=== PATIENT | female | born 2000 | race Caucasian/White ===

== ENCOUNTER 2024-01-28 19:26 | Emergency (ER) | payer MEDICAID, SELFPAY ==
[2024-01-28 19:32] VITALS: BP 129/89; PULSE 86; RESP 14; TEMP 36.8; O2SAT 100; BMI 30.4
--- NOTE | 2024-01-28 19:56 | ED_ITS ---
HPI - Abdominal Pain 2 General: Chief Complaint: Abdominal Pain Stated Complaint: pain on right side Time Seen by Provider: 01/28/24 19:50 History of Present Illness: 23-year-old female presents emergency ro om complaining of right-sided flank pain radiating from her right flank down into her lower pelvis intermittently. She denies any dysuria urgency or frequency she has not had any associated hematuria no history of fever sweats or chills no history of nephrolithiasis. She has had it intermittently for 1 week now Associated Symptoms: Denies chills, dysuria and fever(s) Related Data Date of Last Menstrual Period: 01/04/24 Allergies Allergy/AdvReac Type Severity Reaction Status Date / Time No Known Allergies Allergy Verified 01/28/24 19:38 Review of Systems 2 Const: Denies: fever(s) or chills Card: Denies: chest pain Resp: Denies: dyspnea GI: Denies: abdominal pain : Reports: flank pain; Denies: dysuria, urinary frequency or urinary urgency Musc: Denies: neck pain or back pain Skin/Breast: Denies: rash [facility] ED 2 Female Reproductive History: Date of last menstrual period: 01/04/24 Physical Exam 2 Const: GENERAL APPEARANCE: cooperative ORIENTATION/CONSCIOUSNESS: Yes awake, Yes oriented to person, Yes oriented to place and Yes oriented to time HENMT: COMMON NORMALS: normocephalic, atraumatic and hearing grossly normal bilaterally HEAD & SCALP: normocephalic and atraumatic Resp: COMMON NORMALS: normal respiratory effort, No retractions, No use of accessory muscles and clear to auscultation bilaterally AUSCULTATION: clear to auscultation bilaterally Cardio: COMMON NORMALS: regular rate, regular rhythm and No murmurs present (Cardio) RATE: regular rate RHYTHM: regular rhythm GI: COMMON NORMALS: Soft to palpation and No hepatosplenomegaly present A USCULTATION: Yes normoactive bowel sounds PALPATION: Yes Soft to palpation, No Tenderness to palpation present (GI), No Guarding due to palpation present (GI) and Yes No hepatosplenomegaly present Extremity: COMMON NORMALS: normal to inspection, capillary refill normal, no clubbing, cyanosis or edema, no calf tenderness and no pedal edema Neuro: SENSORIUM/ORIENTATION: Yes oriented to person, Yes oriented to place and Yes oriented to time Skin: COMMON NORMALS: no rashes or lesions noted GENERAL SKIN EXAM: no rashes or lesions noted Course 2 Vital Signs: Vital signs: Vital Signs Temperature 98.2 F 01/28/24 19:32 Pulse Rate 108 H 01/28/24 20:34 Respiratory Rate 16 01/28/24 20:34 Blood Pressure 141/76 01/28/24 20:34 Pulse Oximetry 98 01/28/24 20:34 Oxygen Delivery Me thod Room Air 01/28/24 20:34 MDM - Abdominal Pain Medical Decision Making Laboratory test unremarkable urine negative beta-hCG negative. Abdominal exam benign. Will discharge patient home clinic with diet follow-up as needed if she has any worsening or change symptoms return. Medical Records I reviewed the patient's medical records. Lab Data I reviewed the patient's lab results. 01/28/24 20:06 01/28/24 20:06 Labs/Radiology: Laboratory Results WBC 7.74 10^3/uL (3.29-11.43) 01/28/24 20:06 RBC 5.03 10^6/uL (3.85-5.65) 01/28/24 20:06 Hgb 13.60 g/dL (11.27-16.99) 01/28/24 20:06 Hct 43.6 % (36-47) 01/28/24 20:06 MCV 86.7 fl (85-98) 01/28/24 20:06 MCH 27.0 pg (27-33) 01/28/24 20:06 MCHC 31.2 g/dL (30-55) 01/28/24 20:06 RDW 14.1 % (12.1-15.1) 01/28/24 20:06 Plt Count 274 10^3/cmm (157-399) 01/28/24 20:06 MPV 10.4 fL (7.4-10.4) 01/28/24 20:06 Neut % (Auto) 67.9 % 01/28/24 20:06 Lymph % (Auto) 24.9 % 01/28/24 20:06 [place] % (Auto) 5.3 % 01/28/24 20:06 Eos % (Auto) 1.2 % 01/28/24 20:06 Baso % (Auto) 0.6 % 01/28/24 20:06 Neut # (Auto) 5.25 10^3/uL (1.8-7.7) 01/28/24 20:06 Lymph # (Auto) 1.9 10^3/uL (0.8-4.8) 01/28/24 20:06 [place] # (Auto) 0.4 10^3/uL (0.2-0.9) 01/28/24 20:06 Eos # (Auto) 0.1 10^3/uL (0.0-0.8) 01/28/24 20:06 Baso # (Auto) 0.1 10^3/uL (0.0-0.1) 01/28/24 20:06 Nucleated RBC % (auto) 0 % 01/28/24 20:06 Nucleated RBCs # 0.0 /100WBC 01/28/24 20:06 Sodium 138 mmol/L (136-145) 01/28/24 20:06 Potassium 3.8 mmol/L (3.5-5.1) 01/28/24 20:06 Chloride 104 mmol/L (98-107) 01/28/24 20:06 Carbon Dioxide 24 mmol/L (22-29) 01/28/24 20:06 Anion Gap 13.8 (5-19) 01/28/24 20:06 BUN 10 mg/dL (6-20) 01/28/24 20:06 Creatinine 1.0 mg/dL (0.5-0.9) H 01/28/24 20:06 GFR Calculation 68.7 mL/min (90-130) L 01/28/24 20:06 Glucose 98 mg/dL (65-115) 01/28/24 20:06 Calculated Osmolality 285 mOsm/kg (285-295) 01/28/24 20:06 Calcium 9.9 mg/dL (8.5-10.5) 01/28/24 20:06 Total Bilirubin 0.5 mg/dL (0.15-1.2) 01/28/24 20:06 AST 17 U/L (0-32) 01/28/24 20:06 ALT 10 U/L (0-33) 01/28/24 20:06 Alkaline Phosphatase 65 U/L (35-105) 01/28/24 20:06 Total Protein 8.9 g/dL (6.6-8.7) H 01/28/24 20:06 Albumin 4.9 g/dL (3.5-5.2) 01/28/24 20:06 Globulin 4.0 g/dL (1.3-4.6) 01/28/24 20:06 HCG, Qual Negative (Negative) 01/28/24 20:06 Urine Color Yellow (Yellow) 01/28/24 20:20 Urine Appearance Clear (CLEAR) 01/28/24 20:20 Urine pH 6.0 (5-7) 01/28/24 20:20 Ur Specific [place] 1.012 (1.005-1.030) 01/28/24 20:20 Urine Protein Negative (Negative) 01/28/24 20:20 Urine Glucose (UA) Negative (Normal) 01/28/24 20:20 Urine Ketones Negative (Negative) 01/28/24 20:20 Urine Blood Negative (Negative) 01/28/24 20:20 Urine Nitrate Negative (Negative) 01/28/24 20:20 Urine Bilirubin Negative (Negative) 01/28/24 20:20 Urine Urobilinogen 0.2 mg/dL (Negative) 01/28/24 20:20 Ur Leukocyte Esterase Negative (Negative) 01/28/24 20:20 Urine RBC 0-2 /hpf (0-2) 01/28/24 20:20 Urine WBC 0-5 /hpf (0-5) 01/28/24 20:20 Ur Squamous Epith Cells 0-5 /hpf (0-5) 01/28/24 20:20 Amorphous Sediment Not Reportable 01/28/24 20:20 Urine Bacteria None seen /hpf (NONE) 01/28/24 20:20 Hyaline Casts 0.40 /lpf 01/28/24 20:20 No radiology studies performed this visit Discharge Plan Discharge Patient Disposition: Home Clinical Impression: Abdominal pain Condition: Stable Discharge Orders: Discharge ED (Routine); Ordered 01/28/24 Ordered By: Timi Beltran Discharge Diet: Usual diet Discharge Activity: Resume usual activity Patient Instructions: Abdominal Pain (ED), Opioid Safety, Pain Management Activity Restrictions/Additional Instructions: Thank you for choosing [facility] for your healthcare needs today. It is very important that you follow up as instructed or that you return to the Emergency Department should you have concerns or if your condition changes or worsens in any way. You are seen in the emergency room with abdominal pain. Your laboratory tests and urine were normal. Abdominal exam does not show significant abnormality. Recommend clear liquid diet recheck if it is not improving or changes. Coding Level of Care Code ED Banding Machine Operator for Eitan Heaton
[2024-01-28 20:11] LABS: Basophils # 0.1 10^3/uL (0.0-0.1); Basophils % 0.6 %; Eosinophils # 0.1 10^3/uL (0.0-0.8); Eosinophils % 1.2 %; Hematocrit 43.6 % (36-47); Lymphocytes # 1.9 10^3/uL (0.8-4.8); Lymphocytes % 24.9 %; Mean Corpuscular HGB Conc 31.2 g/dL (30-55); Mean Corpuscular Volume 86.7 fl (85-98); Mean Platelet Volume 10.4 fL (7.4-10.4); Monocytes # 0.4 10^3/uL (0.2-0.9); Monocytes % 5.3 %; Neutrophils # 5.25 10^3/uL (1.8-7.7); Neutrophils % 67.9 %; Nucleated Red Blood Cells % 0 %; Platelet Count 274 10^3/cmm (157-399); Red Blood Count 5.03 10^6/uL (3.85-5.65); Red Cell Distribution Width 14.1 % (12.1-15.1); White Blood Count 7.74 10^3/uL (3.29-11.43)
[2024-01-28 20:22] LABS: HCG, Serum Qual Negative (Negative)
[2024-01-28 20:29] LABS: Alanine Aminotransferase 10 U/L (0-33); Albumin Level 4.9 g/dL (3.5-5.2); Alkaline Phosphatase 65 U/L (35-105); Anion Gap 13.8 (5-19); Aspartate Amino Transferase 17 U/L (0-32); Blood Urea Nitrogen 10 mg/dL (6-20); Calcium 9.9 mg/dL (8.5-10.5); Carbon Dioxide 24 mmol/L (22-29); Chloride 104 mmol/L (98-107); Creatinine Clr Calc Pharmacy 86.5314; Glomerular Filtration Rate 68.7 mL/min (90-130); Glucose 98 mg/dL (65-115); Osmolality Calculated 285 mOsm/kg (285-295); Potassium 3.8 mmol/L (3.5-5.1); Sodium 138 mmol/L (136-145); Total Bilirubin 0.5 mg/dL (0.15-1.2); Total Protein 8.9 g/dL (6.6-8.7)
[2024-01-28 20:34] VITALS: BP 141/76; PULSE 108; RESP 16; O2SAT 98
[2024-01-28 20:51] LABS: Bilirubin Urine Negative (Negative); Blood Urine Negative (Negative); Glucose Urine UA Negative (Normal); Ketones Urine Negative (Negative); Leukocyte Esterase Urine Negative (Negative); Nitrate Urine Negative (Negative); Protein Urine Negative (Negative); Specific Gravity, Urine 1.012 (1.005-1.030); Urine Appearance Clear (CLEAR); Urine Color Yellow (Yellow); Urobilinogen Urine 0.2 mg/dL (Negative)
[2024-01-28 20:56] LABS: Add Urine Microscopic? YES; Bacteria Urine None Seen /hpf; RBC Urine 0-2 /hpf (0-2); Squamous Epithelial Cell Urine 0-5 /hpf (0-5); WBC Urine 0-5 /hpf (0-5)
[2024-01-28 21:32] VITALS: BP 132/82; PULSE 91; RESP 14; O2SAT 99
== END 2024-01-28 21:30 | disposition home or self-care (01) ==
PROVIDERS: Physician Assistant; Emergency Provider Family Medicine
DX: R10.9 Unspecified abdominal pain (principal)
CPT/HCPCS: 36415; 80053; 81001; 84703; 85025; 99283